=== PATIENT | male | born 1955 | race Caucasian/White ===

== ENCOUNTER 2017-06-09 15:31 | Inpatient (IN) | payer OTHER ==
[~2017-06-09] VITALS: Ht 175.3 cm; Wt 80.8 kg
[2017-06-09 16:16] VITALS: BP 153/88
[2017-06-09] MEDS ORDERED: morphine SULFATE 10 MG/ML, 1ML ONE (18:48)
[2017-06-09] MEDS ORDERED: PLEASE ENTER ALLERGIES MC SCH (19:00)
[2017-06-09] MEDS ORDERED: morphine SULFATE 10 MG/ML, 1ML IVPush ONE ×2 (19:00)
[2017-06-09 19:58] VITALS: BP 153/79
[2017-06-09] MEDS ORDERED: ACETAMINOPHEN 325 MG TABLET PO PRN (20:30)
[2017-06-09] MEDS ORDERED: PROMETHAZINE 25 MG/ML, 1ML IM PRN (20:30)
[2017-06-09] MEDS ORDERED: ONDANSETRON ODT 4 MG PO PRN (20:30)
[2017-06-09 21:57] LABS: BASOPHILS # (AUTO) 0.01 x10^3/uL (0-0.1); BASOPHILS % (AUTO) 0 % (0-1); EOSINOPHILS # (AUTO) 0.01 x10^3/uL (0-0.4); EOSINOPHILS % (AUTO) 0 % (1-7); LYMPHOCYTES # (AUTO) 0.88 x10^3/uL (1-3.4); LYMPHOCYTES % (AUTO) 16 % (22-44); MD NO; MEAN CORPUSCULAR HGB CONC 34.3 g/dL (33.2-36.2); MEAN CORPUSCULAR VOLUME 90.4 fL (81-97); MEAN PLATELET VOLUME 7.6 fL (7.4-10.4); MONOCYTES # (AUTO) 0.47 x10^3/uL (0.2-0.8); MONOCYTES % (AUTO) 8 % (2-9); NEUTROPHILS # (AUTO) 4.33 x10^3/uL (1.8-6.8); NEUTROPHILS % (AUTO) 76 % (42-75); PLATELET COUNT 252 x10^3/uL (130-400); RED BLOOD COUNT 5.26 x10^6/uL (4.38-5.82); RED CELL DISTRIBUTION WIDTH 12.5 % (9.4-14.8)
[2017-06-09 22:06] LABS: INTERNATIONAL NORMALIZED RATIO 1.05 (0.93-1.1); PROTHROMBIN TIME 10.8 Seconds (9.6-11.5)
[2017-06-09 22:08] LABS: ALANINE AMINOTRANSFERASE 13 U/L (12-78); ANION GAP 9 mmol/L (5-15); CALCIUM 7.6 mg/dL (8.5-10.1); CHLORIDE 102 mmol/L (98-107); CREATININE 0.67 mg/dL (0.7-1.3)
[2017-06-09 22:11] LABS: ALKALINE PHOSPHATASE 107 U/L (45-117); BILIRUBIN,TOTAL 0.5 mg/dL (0.2-1.0); TOTAL PROTEIN 6.4 g/dL (6.4-8.2)
[2017-06-09 22:23] LABS: HEMOGLOBIN A1C 10.6 % (4.2-6.3)
[2017-06-09] MEDS: SODIUM CHLORIDE 0.9% 1,000 ML IV SCH (23:19)
[2017-06-09] MEDS: morphine SULFATE 10 MG/ML, 1ML IVPush PRN (23:19)
[2017-06-10] MEDS ORDERED: hydrALAzine 20 MG/ML, 1ML IV PRN ×2 (01:30→13:30)
[2017-06-10] MEDS: ONDANSETRON 2MG/ML, 2ML IVPush PRN ×2 (01:55→16:19)
[2017-06-10] MEDS: PIPERACILLIN/TAZO/PMX 3.375GM 50 ML IV SCH ×4 (01:55→20:56)
[2017-06-10 02:19] VITALS: BP 146/78
[2017-06-10] MEDS: morphine SULFATE 10 MG/ML, 1ML IVPush PRN ×6 (02:33→22:23)
[2017-06-10 03:08] LABS: MICROSCOPIC NOT IND
[2017-06-10 03:11] LABS: CULTURE INDICATED? NO
[2017-06-10] MEDS ORDERED: INSULIN DETEMIR 100 UNITS/ML, PEN SQ-INSULIN SCH ×3 (04:00→21:00)
[2017-06-10 06:03] LABS: BASOPHILS % (AUTO) 0 % (0-1); EOSINOPHILS % (AUTO) 0 % (1-7); LYMPHOCYTES # (AUTO) 1.04 x10^3/uL (1-3.4); LYMPHOCYTES % (AUTO) 18 % (22-44); MD NO; MEAN CORPUSCULAR HGB CONC 34.3 g/dL (33.2-36.2); MEAN CORPUSCULAR VOLUME 90.4 fL (81-97); MEAN PLATELET VOLUME 7.9 fL (7.4-10.4); MONOCYTES # (AUTO) 0.58 x10^3/uL (0.2-0.8); MONOCYTES % (AUTO) 10 % (2-9); NEUTROPHILS # (AUTO) 4.08 x10^3/uL (1.8-6.8); NEUTROPHILS % (AUTO) 72 % (42-75); PLATELET COUNT 247 x10^3/uL (130-400); RED CELL DISTRIBUTION WIDTH 12.4 % (9.4-14.8)
[2017-06-10 06:17] LABS: CHLORIDE 102 mmol/L (98-107)
[2017-06-10 06:36] LABS: ALANINE AMINOTRANSFERASE 12 U/L (12-78); ALKALINE PHOSPHATASE 113 U/L (45-117); ANION GAP 11 mmol/L (5-15); BILIRUBIN,TOTAL 0.8 mg/dL (0.2-1.0); CALCIUM 7.8 mg/dL (8.5-10.1); CHOL/HDL RATIO 5.1; CHOLESTEROL, TOTAL 173 mg/dL (140-239); CREATININE 0.82 mg/dL (0.7-1.3); HDL CHOL % 20 % (26-37); HDL CHOLESTEROL (DIRECT) 34 mg/dL (40-60); LDL CHOLESTEROL,CALCULATED 116 mg/dL (54-169); LDL/HDL RATIO 3.4 (0.5-3.0); TOTAL PROTEIN 6.6 g/dL (6.4-8.2); TRIGLYCERIDES 113 mg/dL (50-200); VLDL CHOLESTEROL 23 mg/dL (0-25)
[2017-06-10 07:58] VITALS: BP 127/69
[2017-06-10] MEDS: SODIUM CHLORIDE 0.9% 1,000 ML IV SCH ×2 (08:04→16:19)
[2017-06-10] MEDS: INSULIN ASPART 100 UNITS/ML, PEN SQ-INSULIN SCH ×3 (08:05→22:17)
[2017-06-10 14:54] VITALS: BP 152/84
[2017-06-10 18:55] VITALS: BP 155/90
[2017-06-10] MEDS: SIMVASTATIN 20 MG TABLET PO SCH (20:57)
[2017-06-11] VITALS (7 sets, daily range): BP systolic 110–141; BP diastolic 54–89
[2017-06-11] MEDS: PIPERACILLIN/TAZO/PMX 3.375GM 50 ML IV SCH ×4 (02:31→19:52)
[2017-06-11] MEDS: SODIUM CHLORIDE 0.9% 1,000 ML IV SCH (02:35)
[2017-06-11] MEDS: INSULIN ASPART 100 UNITS/ML, PEN SQ-INSULIN SCH ×4 (04:10→20:26)
[2017-06-11] MEDS: morphine SULFATE 10 MG/ML, 1ML IVPush PRN ×2 (04:10→14:06)
[2017-06-11 04:59] LABS: CLOSTRIDIUM DIFFICILE ANTIGEN NEGATIVE; CLOSTRIDIUM DIFFICILE TOXIN NEGATIVE (Negative)
[2017-06-11 05:24] LABS: ALANINE AMINOTRANSFERASE 20 U/L (12-78); ALBUMIN 2.5 g/dL (3.4-5.0); ANION GAP 12 mmol/L (5-15); CALCIUM 7.4 mg/dL (8.5-10.1); CHLORIDE 109 mmol/L (98-107); CREATININE 0.79 mg/dL (0.7-1.3)
[2017-06-11 05:26] LABS: ALKALINE PHOSPHATASE 128 U/L (45-117); BILIRUBIN,TOTAL 0.7 mg/dL (0.2-1.0); TOTAL PROTEIN 5.8 g/dL (6.4-8.2)
[2017-06-11 05:27] LABS: BASOPHILS # (AUTO) 0.01 x10^3/uL (0-0.1); BASOPHILS % (AUTO) 0 % (0-1); EOSINOPHILS # (AUTO) 0.01 x10^3/uL (0-0.4); EOSINOPHILS % (AUTO) 0 % (1-7); LYMPHOCYTES # (AUTO) 0.63 x10^3/uL (1-3.4); LYMPHOCYTES % (AUTO) 17 % (22-44); MD NO; MEAN CORPUSCULAR HEMOGLOBIN 31.1 pg (27.5-34.5); MEAN CORPUSCULAR VOLUME 91.5 fL (81-97); MEAN PLATELET VOLUME 8.2 fL (7.4-10.4); MONOCYTES # (AUTO) 0.52 x10^3/uL (0.2-0.8); MONOCYTES % (AUTO) 14 % (2-9); NEUTROPHILS # (AUTO) 2.53 x10^3/uL (1.8-6.8); NEUTROPHILS % (AUTO) 68 % (42-75); PLATELET COUNT 236 x10^3/uL (130-400); RED BLOOD COUNT 4.89 x10^6/uL (4.38-5.82); RED CELL DISTRIBUTION WIDTH 12.7 % (9.4-14.8)
[2017-06-11] MEDS ORDERED: FENTANYL PF 250 MCG/5ML ONE ×2 (08:11→09:21)
[2017-06-11] MEDS ORDERED: MIDAZOLAM 1 MG/ML, 2ML ONE (08:11)
[2017-06-11] MEDS ORDERED: MEPERIDINE/PF 25MG/0.5ML IVPush PRN (08:30)
[2017-06-11] MEDS ORDERED: ACETAMINOPHEN 325 MG TABLET PO PRN (08:30)
[2017-06-11] MEDS ORDERED: morphine SULFATE 10 MG/ML, 1ML IV PRN (08:30)
[2017-06-11] MEDS ORDERED: hydrALAzine 20 MG/ML, 1ML IV PRN (08:30)
[2017-06-11] MEDS ORDERED: ONDANSETRON 2MG/ML, 2ML IVPush PRN (08:30)
[2017-06-11] MEDS ORDERED: FENTANYL PF 100 MCG/2ML IV PRN (08:30)
[2017-06-11] MEDS ORDERED: BUPIVACAINE/PF 0.5% ONE (08:38)
[2017-06-11] MEDS ORDERED: EPINEPHRINE 1 MG/ML, 1ML ONE (08:38)
[2017-06-11] MEDS: SODIUM CHLORIDE 0.45% 1,000 ML IV SCH ×2 (09:00→17:00)
[2017-06-11] MEDS ORDERED: morphine SULFATE 10 MG/ML, 1ML ONE (10:49)
[2017-06-11] MEDS ORDERED: POTASSIUM CHLORIDE 20 MEQ in D5%-0.45% NACL 1,000 ML IV SCH (12:30)
[2017-06-11] MEDS ORDERED: ONDANSETRON 2MG/ML, 2ML ONE (15:15)
[2017-06-11] MEDS ORDERED: SUCCINYLCHOLINE 20 MG/ML, 10ML ONE (15:15)
[2017-06-11] MEDS ORDERED: EPHEDRINE 50 MG/ML, 1ML ONE (15:15)
[2017-06-11] MEDS ORDERED: ROCURONIUM 10 MG/ML,10ML ONE (15:15)
[2017-06-11] MEDS ORDERED: PROPOFOL 10 MG/ML, 20ML ONE (15:15)
[2017-06-11] MEDS: HEPARIN 5,000 UNITS/ML, 1ML SQ SCH (19:52)
[2017-06-11] MEDS: SIMVASTATIN 20 MG TABLET PO SCH (19:54)
[2017-06-11] MEDS: INSULIN DETEMIR 100 UNITS/ML, PEN SQ-INSULIN SCH (20:25)
[2017-06-12] MEDS: morphine SULFATE 10 MG/ML, 1ML IVPush PRN ×4 (00:42→19:22)
[2017-06-12] MEDS: SODIUM CHLORIDE 0.45% 1,000 ML IV SCH ×3 (01:46→17:00)
[2017-06-12] MEDS: PIPERACILLIN/TAZO/PMX 3.375GM 50 ML IV SCH ×4 (02:42→21:21)
[2017-06-12] MEDS: HEPARIN 5,000 UNITS/ML, 1ML SQ SCH ×3 (04:53→21:21)
[2017-06-12 04:54] VITALS: BP 147/82
[2017-06-12 06:11] LABS: BASOPHILS # (AUTO) 0.02 x10^3/uL (0-0.1); BASOPHILS % (AUTO) 0 % (0-1); CHLORIDE 106 mmol/L (98-107); EOSINOPHILS # (AUTO) 0.01 x10^3/uL (0-0.4); EOSINOPHILS % (AUTO) 0 % (1-7); LYMPHOCYTES # (AUTO) 1.01 x10^3/uL (1-3.4); LYMPHOCYTES % (AUTO) 18 % (22-44); MD NO; MEAN CORPUSCULAR HEMOGLOBIN 30.5 pg (27.5-34.5); MEAN CORPUSCULAR HGB CONC 33.6 g/dL (33.2-36.2); MEAN CORPUSCULAR VOLUME 90.8 fL (81-97); MEAN PLATELET VOLUME 8.1 fL (7.4-10.4); MONOCYTES # (AUTO) 0.79 x10^3/uL (0.2-0.8); MONOCYTES % (AUTO) 14 % (2-9); NEUTROPHILS # (AUTO) 3.71 x10^3/uL (1.8-6.8); NEUTROPHILS % (AUTO) 67 % (42-75); PLATELET COUNT 226 x10^3/uL (130-400); RED BLOOD COUNT 4.54 x10^6/uL (4.38-5.82); RED CELL DISTRIBUTION WIDTH 12.4 % (9.4-14.8)
[2017-06-12 06:27] LABS: ALANINE AMINOTRANSFERASE 23 U/L (12-78); ALBUMIN 2.2 g/dL (3.4-5.0); ALKALINE PHOSPHATASE 88 U/L (45-117); ANION GAP 7 mmol/L (5-15); BILIRUBIN,TOTAL 0.7 mg/dL (0.2-1.0); CALCIUM 7.7 mg/dL (8.5-10.1); CREATININE 0.58 mg/dL (0.7-1.3); TOTAL PROTEIN 5.4 g/dL (6.4-8.2)
[2017-06-12] MEDS: INSULIN ASPART 100 UNITS/ML, PEN SQ-INSULIN SCH ×4 (06:33→21:00)
[2017-06-12 07:03] VITALS: BP 146/79
[2017-06-12 15:11] VITALS: BP 158/88
[2017-06-12] MEDS ORDERED: POTASSIUM CHLORIDE 40 MEQ in SODIUM CHLORIDE 0.9% 500 ML IV ONE (18:30)
[2017-06-12 20:20] VITALS: BP 136/80
[2017-06-12] MEDS: INSULIN DETEMIR 100 UNITS/ML, PEN SQ-INSULIN SCH ×2 (21:00→21:22)
[2017-06-12] MEDS: SIMVASTATIN 20 MG TABLET PO SCH (21:21)
[2017-06-13] MEDS: morphine SULFATE 10 MG/ML, 1ML IVPush PRN ×4 (01:38→20:25)
[2017-06-13] MEDS: PIPERACILLIN/TAZO/PMX 3.375GM 50 ML IV SCH ×4 (02:36→20:11)
[2017-06-13 02:43] VITALS: BP 133/75
[2017-06-13] MEDS: HEPARIN 5,000 UNITS/ML, 1ML SQ SCH ×3 (06:02→20:11)
[2017-06-13] MEDS: INSULIN ASPART 100 UNITS/ML, PEN SQ-INSULIN SCH ×4 (06:05→20:10)
[2017-06-13 06:51] LABS: ANION GAP 8 mmol/L (5-15); CALCIUM 7.2 mg/dL (8.5-10.1); CHLORIDE 103 mmol/L (98-107); CREATININE 0.66 mg/dL (0.7-1.3)
[2017-06-13 07:18] VITALS: BP 146/79
[2017-06-13] MEDS: SODIUM CHLORIDE 0.45% 1,000 ML IV SCH ×3 (07:51→23:40)
[2017-06-13 14:44] VITALS: BP 152/81
[2017-06-13] MEDS: INSULIN DETEMIR 100 UNITS/ML, PEN SQ-INSULIN SCH (20:11)
[2017-06-13] MEDS: SIMVASTATIN 20 MG TABLET PO SCH (20:11)
[2017-06-13 20:26] VITALS: BP_SYST 103; BP_SYST 151; BP_DIAS 68; BP_DIAS 81
[2017-06-14] MEDS: morphine SULFATE 10 MG/ML, 1ML IVPush PRN ×4 (01:44→20:09)
[2017-06-14] MEDS: PIPERACILLIN/TAZO/PMX 3.375GM 50 ML IV SCH ×4 (02:11→20:10)
[2017-06-14 03:59] VITALS: BP 146/76
[2017-06-14] MEDS: HEPARIN 5,000 UNITS/ML, 1ML SQ SCH ×3 (04:12→20:10)
[2017-06-14] MEDS: INSULIN ASPART 100 UNITS/ML, PEN SQ-INSULIN SCH ×4 (06:21→20:07)
[2017-06-14 06:50] VITALS: BP 144/79
[2017-06-14] MEDS: SODIUM CHLORIDE 0.45% 1,000 ML IV SCH ×2 (08:24→20:09)
[2017-06-14] MEDS ORDERED: GADOBUTROL 7.5 MMOL/7.5 ML PFS ONE (11:28)
[2017-06-14] MEDS: POTASSIUM CHLORIDE 20 MEQ TAB.ER.PRT PO SCH ×2 (11:48→14:54)
[2017-06-14 12:30] VITALS: BP 169/85
[2017-06-14] MEDS ORDERED: OMNIPAQUE 350 MG/ML, 100ML BOTTLE ONE (16:11)
[2017-06-14] MEDS: INSULIN DETEMIR 100 UNITS/ML, PEN SQ-INSULIN SCH (20:09)
[2017-06-14] MEDS: SIMVASTATIN 20 MG TABLET PO SCH (20:10)
[2017-06-14 21:15] VITALS: BP 134/71
[2017-06-15] MEDS: PIPERACILLIN/TAZO/PMX 3.375GM 50 ML IV SCH ×3 (02:09→14:53)
[2017-06-15 02:11] VITALS: BP 154/80
[2017-06-15] MEDS: HEPARIN 5,000 UNITS/ML, 1ML SQ SCH ×3 (04:21→22:18)
[2017-06-15] MEDS: SODIUM CHLORIDE 0.45% 1,000 ML IV SCH ×3 (04:21→21:14)
[2017-06-15 05:29] LABS: CHLORIDE 103 mmol/L (98-107)
[2017-06-15 05:36] LABS: ALANINE AMINOTRANSFERASE 11 U/L (12-78); ALBUMIN 2.1 g/dL (3.4-5.0); ALKALINE PHOSPHATASE 100 U/L (45-117); ANION GAP 8 mmol/L (5-15); BILIRUBIN,TOTAL 0.6 mg/dL (0.2-1.0); CALCIUM 7.5 mg/dL (8.5-10.1); CREATININE 0.54 mg/dL (0.7-1.3); TOTAL PROTEIN 5.5 g/dL (6.4-8.2)
[2017-06-15] MEDS: INSULIN ASPART 100 UNITS/ML, PEN SQ-INSULIN SCH ×4 (07:48→22:20)
[2017-06-15] MEDS: POTASSIUM CHLORIDE 20 MEQ TAB.ER.PRT PO SCH ×4 (10:27→15:00)
[2017-06-15 10:28] VITALS: BP 148/82
[2017-06-15] MEDS: morphine SULFATE 10 MG/ML, 1ML IVPush PRN (11:26)
[2017-06-15 12:51] VITALS: BP 152/82
[2017-06-15 20:00] VITALS: BP 161/92
[2017-06-15] MEDS ORDERED: PIPERACILLIN/TAZO 3.375 GM in SODIUM CHLORIDE 0.9% 50 ML IV SCH (20:30)
[2017-06-15] MEDS: HYDROcodone/APAP 5/325 TABLET PO PRN (21:15)
[2017-06-15] MEDS: DOCUSATE 100 MG CAPSULE PO SCH (22:18)
[2017-06-15] MEDS: SIMVASTATIN 20 MG TABLET PO SCH (22:19)
[2017-06-15] MEDS: INSULIN DETEMIR 100 UNITS/ML, PEN SQ-INSULIN SCH (22:19)
[2017-06-16 00:39] VITALS: BP 130/73
[2017-06-16] MEDS: PIPERACILLIN/TAZO/PMX 3.375GM 50 ML IV SCH ×4 (02:55→20:44)
[2017-06-16] MEDS: HEPARIN 5,000 UNITS/ML, 1ML SQ SCH ×3 (02:59→19:35)
[2017-06-16 05:48] LABS: ANION GAP 7 mmol/L (5-15); CALCIUM 7.9 mg/dL (8.5-10.1); CHLORIDE 103 mmol/L (98-107)
[2017-06-16] MEDS: SODIUM CHLORIDE 0.45% 1,000 ML IV SCH ×3 (06:17→22:59)
[2017-06-16] MEDS: INSULIN ASPART 100 UNITS/ML, PEN SQ-INSULIN SCH ×4 (07:00→20:48)
[2017-06-16 09:01] VITALS: BP 147/79
[2017-06-16] MEDS: DOCUSATE 100 MG CAPSULE PO SCH ×2 (09:04→19:35)
[2017-06-16] MEDS: HYDROcodone/APAP 5/325 TABLET PO PRN ×3 (13:43→23:16)
[2017-06-16 17:44] VITALS: BP_SYST 134; BP_SYST 163; BP_DIAS 67; BP_DIAS 83
[2017-06-16] MEDS: POTASSIUM CHLORIDE 10% 20 MEQ/15 ML UDC PO SCH ×2 (19:35→22:19)
[2017-06-16] MEDS: SIMVASTATIN 20 MG TABLET PO SCH (19:35)
[2017-06-16 20:28] VITALS: BP 149/78
[2017-06-16] MEDS: INSULIN DETEMIR 100 UNITS/ML, PEN SQ-INSULIN SCH (20:48)
[2017-06-17 01:48] VITALS: BP 133/79
[2017-06-17] MEDS: HEPARIN 5,000 UNITS/ML, 1ML SQ SCH ×3 (03:23→21:45)
[2017-06-17] MEDS: SODIUM CHLORIDE 0.45% 1,000 ML IV SCH ×2 (03:23→15:00)
[2017-06-17] MEDS: PIPERACILLIN/TAZO/PMX 3.375GM 50 ML IV SCH ×2 (03:23→08:39)
[2017-06-17 05:30] LABS: CHLORIDE 108 mmol/L (98-107)
[2017-06-17 05:38] LABS: ANION GAP 5 mmol/L (5-15); CALCIUM 7.7 mg/dL (8.5-10.1); CREATININE 0.76 mg/dL (0.7-1.3)
[2017-06-17] MEDS: HYDROcodone/APAP 5/325 TABLET PO PRN ×2 (07:00→18:42)
[2017-06-17] MEDS: INSULIN ASPART 100 UNITS/ML, PEN SQ-INSULIN SCH ×4 (07:00→20:32)
[2017-06-17 07:05] VITALS: BP 147/74
[2017-06-17] MEDS: DOCUSATE 100 MG CAPSULE PO SCH ×2 (09:00→21:00)
[2017-06-17] MEDS ORDERED: POTASSIUM CHLORIDE 80 MEQ in SODIUM CHLORIDE 0.9% 1,000 ML IV ONE (11:00)
[2017-06-17] MEDS ORDERED: HEPARIN 1,000 UNITS/ML, 10ML ONE (13:35)
[2017-06-17] MEDS ORDERED: BUPIVACAINE/PF 0.5% ONE (13:35)
[2017-06-17] MEDS ORDERED: PROTAMINE SULFATE 10 MG/ML, 5ML ONE (13:35)
[2017-06-17] MEDS ORDERED: MIDAZOLAM 1 MG/ML, 2ML ONE (14:02)
[2017-06-17] MEDS ORDERED: PROPOFOL 10 MG/ML, 20ML ONE (14:04)
[2017-06-17] MEDS ORDERED: FENTANYL PF 100 MCG/2ML ONE (14:12)
[2017-06-17] MEDS ORDERED: LIDOCAINE 1%, 50ML ONE (14:16)
[2017-06-17] MEDS ORDERED: EPINEPHRINE 1 MG/ML, 1ML ONE (14:16)
[2017-06-17] MEDS ORDERED: ONDANSETRON 2MG/ML, 2ML IVPush PRN (14:30)
[2017-06-17] MEDS ORDERED: OXYcodone 5 MG/5 ML ORAL.SOL UDC PO PRN (14:30)
[2017-06-17] MEDS ORDERED: ACETAMINOPHEN 325 MG TABLET PO PRN (14:30)
[2017-06-17] MEDS ORDERED: HYDROmorphone 1 MG/ML, 1ML IV PRN (14:30)
[2017-06-17] MEDS ORDERED: FENTANYL PF 100 MCG/2ML IV PRN (14:30)
[2017-06-17 16:30] VITALS: BP 166/92
[2017-06-17 17:05] VITALS: BP 170/93
[2017-06-17 17:58] LABS: CLOSTRIDIUM DIFFICILE ANTIGEN NEGATIVE; CLOSTRIDIUM DIFFICILE TOXIN NEGATIVE (Negative)
[2017-06-17 20:19] VITALS: BP 128/81
[2017-06-17] MEDS ORDERED: MAGNESIUM SULFATE PMX 4GM/100M 100 ML IV ONE (21:00)
[2017-06-17] MEDS: SIMVASTATIN 20 MG TABLET PO SCH (21:45)
[2017-06-17] MEDS: INSULIN DETEMIR 100 UNITS/ML, PEN SQ-INSULIN SCH (21:46)
[2017-06-18] MEDS: HYDROcodone/APAP 5/325 TABLET PO PRN ×2 (01:21→15:59)
[2017-06-18 01:50] VITALS: BP 153/83
[2017-06-18] MEDS: SODIUM CHLORIDE 0.45% 1,000 ML IV SCH ×3 (04:17→20:00)
[2017-06-18 05:24] LABS: ANION GAP 5 mmol/L (5-15); CHLORIDE 107 mmol/L (98-107)
[2017-06-18 05:27] LABS: CALCIUM 7.7 mg/dL (8.5-10.1)
[2017-06-18] MEDS: HEPARIN 5,000 UNITS/ML, 1ML SQ SCH ×3 (06:06→21:34)
[2017-06-18] MEDS: INSULIN ASPART 100 UNITS/ML, PEN SQ-INSULIN SCH ×4 (07:00→21:37)
[2017-06-18] MEDS ORDERED: POTASSIUM CHLORIDE 40 MEQ in SODIUM CHLORIDE 0.9% 500 ML IV ONE (07:30)
[2017-06-18 07:34] VITALS: BP 143/76
[2017-06-18] MEDS: DOCUSATE 100 MG CAPSULE PO SCH ×2 (08:36→21:33)
[2017-06-18 14:00] VITALS: BP 145/73
[2017-06-18] MEDS: POTASSIUM CHLORIDE 40 MEQ in SODIUM CHLORIDE 0.9% 500 ML IV SCH ×2 (16:48→23:56)
[2017-06-18 19:59] VITALS: BP 154/88
[2017-06-18] MEDS: SIMVASTATIN 20 MG TABLET PO SCH (21:33)
[2017-06-18] MEDS: INSULIN DETEMIR 100 UNITS/ML, PEN SQ-INSULIN SCH (22:00)
[2017-06-19] MEDS: HYDROcodone/APAP 5/325 TABLET PO PRN (01:16)
[2017-06-19 05:32] LABS: ANION GAP 3 mmol/L (5-15); CALCIUM 7.7 mg/dL (8.5-10.1); CHLORIDE 111 mmol/L (98-107)
[2017-06-19 05:33] LABS: CREATININE 0.55 mg/dL (0.7-1.3)
[2017-06-19] MEDS: HEPARIN 5,000 UNITS/ML, 1ML SQ SCH (05:59)
[2017-06-19] MEDS: SODIUM CHLORIDE 0.45% 1,000 ML IV SCH (06:12)
[2017-06-19] MEDS: INSULIN ASPART 100 UNITS/ML, PEN SQ-INSULIN SCH ×2 (07:00→11:00)
[2017-06-19 07:31] VITALS: BP 151/80
[2017-06-19] MEDS ORDERED: POTASSIUM CHLORIDE 40 MEQ in SODIUM CHLORIDE 0.9% 500 ML IV ONE (08:30)
[2017-06-19] MEDS: DOCUSATE 100 MG CAPSULE PO SCH (09:00)
[2017-06-19] MEDS ORDERED: ONDA4TAB13 PO (09:43)
[2017-06-19] MEDS ORDERED: KETO10TA PO (09:43)
[2017-06-19] MEDS ORDERED: INSU100I28 SQ-INSULIN (09:43)
[2017-06-19] MEDS ORDERED: SIMV20TA3 PO (09:43)
[2017-06-19] MEDS ORDERED: ACET325T14 PO (09:43)
== END 2017-06-19 12:16 | disposition home or self-care (01) | DRG 330 ==
LOC: 4NOR 15:31 → DCLOUNGE 06-19 11:50
PROVIDERS: ADMIT Family Medicine; ATTEND Family Medicine
PROC: 0DBU4ZZ Excision of Omentum, Percutaneous Endoscopic Approach (ICD-10-PCS; 2017-06-11)
PROC: 0D9W4ZX Drainage of Peritoneum, Percutaneous Endoscopic Approach, Diagnostic (ICD-10-PCS; 2017-06-11)
PROC: 0D1M4Z4 Bypass Descending Colon to Cutaneous, Percutaneous Endoscopic Approach (ICD-10-PCS; principal; 2017-06-11 08:30)
PROC: 0JH60WZ Insertion of Totally Implantable Vascular Access Device into Chest Subcutaneous Tissue and Fascia, Open Approach (ICD-10-PCS; 2017-06-17)
DX: C20 Malignant neoplasm of rectum (principal); K56.609 Unspecified intestinal obstruction, unspecified as to partial versus complete obstruction; D68.59 Other primary thrombophilia; C78.6 Secondary malignant neoplasm of retroperitoneum and peritoneum; C78.7 Secondary malignant neoplasm of liver and intrahepatic bile duct; R18.8 Other ascites; C18.6 Malignant neoplasm of descending colon; C19 Malignant neoplasm of rectosigmoid junction; N39.0 Urinary tract infection, site not specified; E11.65 Type 2 diabetes mellitus with hyperglycemia; I10 Essential (primary) hypertension; K63.9 Disease of intestine, unspecified; E78.5 Hyperlipidemia, unspecified; E87.5 Hyperkalemia; E87.6 Hypokalemia; Z82.3 Family history of stroke; Z82.49 Family history of ischemic heart disease and other diseases of the circulatory system; Z87.891 Personal history of nicotine dependence; Z92.21 Personal history of antineoplastic chemotherapy
CPT/HCPCS: 36415; 70553; 71045; 71260; 74177; 77001; 80048; 80053; 80061; 81003; 82105; 82378; 82962; 83036; 83735; 84100; 84132; 84443; 85014; 85018; 85025; 85610; 86301; 87324; 88112; 88305; 93005; A9585; J0171; J1644; J1815; J2250; J2405; J2543; J2704; J2720; J3010; J3480; J3490; Q9967; C1788; J0330; J0360; J2270; J3475; J7030; J7040

== ENCOUNTER → 2017-09-18 | Outpatient (CLI) | payer OTHER ==
[~2017-09-18] MED LIST: ACET325T14 PO; INSU100I28 SQ-INSULIN; KETO10TA PO; OMNIPAQUE 350 MG/ML, 100ML BOTTLE ONE; ONDA4TAB13 PO; SIMV20TA3 PO
== END | disposition home or self-care (01) ==
LOC: CFH 11:30
PROVIDERS: ATTEND Internal Medicine Hematology & Oncology
DX: C78.7 Secondary malignant neoplasm of liver and intrahepatic bile duct (principal); C18.6 Malignant neoplasm of descending colon
CPT/HCPCS: 71260; 74177; Q9967

== ENCOUNTER 2018-01-24 07:39 | Day surgery (SDC) | payer OTHER ==
[~2018-01-24 07:39] MED LIST changes: -OMNIPAQUE 350 MG/ML, 100ML BOTTLE ONE
[2018-01-24] MEDS ORDERED: LIDOCAINE-MPF 2%, 2ML ONE (08:23)
== END 2018-01-24 17:00 | disposition home or self-care (01) ==
LOC: RAD 07:39
PROVIDERS: ATTEND Internal Medicine Hematology & Oncology
DX: Z45.2 Encounter for adjustment and management of vascular access device (principal); C18.9 Malignant neoplasm of colon, unspecified; Z79.4 Long term (current) use of insulin; Z87.891 Personal history of nicotine dependence
CPT/HCPCS: 36590; 77001; J3490

== ENCOUNTER → 2018-03-07 | Outpatient (CLI) | payer OTHER ==
[~2018-03-07] MED LIST changes: +LIDOCAINE-MPF 2%, 2ML ONE
== END | disposition home or self-care (01) ==
LOC: RAD 14:58
PROVIDERS: ATTEND Internal Medicine Hematology & Oncology
DX: C18.6 Malignant neoplasm of descending colon (principal); R18.8 Other ascites
CPT/HCPCS: 49083; J3490

== ENCOUNTER 2018-03-29 18:49 | Inpatient (IN) | payer OTHER ==
[~2018-03-29] VITALS: Ht 175.3 cm; Wt 58.2 kg
[~2018-03-29 18:49] MED LIST changes: -LIDOCAINE-MPF 2%, 2ML ONE
[2018-03-29] MEDS ORDERED: SODIUM CHLORIDE FLUSH 10ML SYR IVF ONE (19:00)
[2018-03-29] MEDS ORDERED: PLEASE ENTER HEIGHT AND WEIGHT MC SCH (19:00)
[2018-03-29] MEDS ORDERED: SODIUM CHLORIDE 0.9% 1,000ML IVBOLUS ONE (19:00)
[2018-03-29 19:39] LABS: BASOPHILS # (AUTO) 0.01 x10^3/uL (0-0.1); BASOPHILS % (AUTO) 0 % (0-1); EOSINOPHILS % (AUTO) 0 % (1-7); LYMPHOCYTES # (AUTO) 0.42 x10^3/uL (1-3.4); LYMPHOCYTES % (AUTO) 3 % (22-44); MD NO; MEAN CORPUSCULAR HEMOGLOBIN 31.2 pg (27.5-34.5); MEAN CORPUSCULAR HGB CONC 34.2 g/dL (33.2-36.2); MEAN CORPUSCULAR VOLUME 91.2 fL (81-97); MEAN PLATELET VOLUME 7.9 fL (7.4-10.4); MONOCYTES # (AUTO) 1.43 x10^3/uL (0.2-0.8); MONOCYTES % (AUTO) 9 % (2-9); NEUTROPHILS # (AUTO) 14.15 x10^3/uL (1.8-6.8); NEUTROPHILS % (AUTO) 88 % (42-75); PLATELET COUNT 380 x10^3/uL (130-400); RED BLOOD COUNT 4.07 x10^6/uL (4.38-5.82); RED CELL DISTRIBUTION WIDTH 13.9 % (9.4-14.8)
[2018-03-29 19:52] LABS: ALANINE AMINOTRANSFERASE 32 U/L (12-78); ANION GAP 12 mmol/L (5-15); CALCIUM 7.3 mg/dL (8.5-10.1); CHLORIDE 103 mmol/L (98-107); CREATININE 4.12 mg/dL (0.7-1.3)
[2018-03-29 19:56] LABS: ALKALINE PHOSPHATASE 284 U/L (45-117); BILIRUBIN,TOTAL 0.4 mg/dL (0.2-1.0); TOTAL PROTEIN 5.7 g/dL (6.4-8.2)
[2018-03-29 20:00] LABS: TROPONIN I 0.122 ng/mL (0.000-0.045)
[2018-03-29] MEDS ORDERED: FUROSEMIDE 40 MG/4 ML IV ONE (20:00)
[2018-03-29] MEDS ORDERED: ASPIRIN 325 MG TABLET PO ONE (20:00)
[2018-03-29 20:02] LABS: INTERNATIONAL NORMALIZED RATIO 1.11 (0.93-1.1); PROTHROMBIN TIME 11.4 Seconds (9.6-11.5)
[2018-03-29] MEDS ORDERED: FUROSEMIDE 20 MG/2 ML ONE (20:06)
[2018-03-29] MEDS ORDERED: ASPIRIN 325 MG TABLET ONE (20:06)
[2018-03-29] MEDS ORDERED: REGULAR INSULIN 62.5 UNITS in SODIUM CHLORIDE 0.9% 249.375 ML IV PRN ×2 (20:07→20:56)
[2018-03-29 20:19] LABS: ACETONE, SERUM Large (80mg/dL) mg/dL (Negative)
[2018-03-29] MEDS ORDERED: OXYC30TA66 PO (20:32)
[2018-03-29] MEDS ORDERED: OXYM5TAB PO (20:32)
[2018-03-29 20:40] LABS: MICROSCOPIC INDICATED
[2018-03-29 20:52] LABS: CULTURE INDICATED? NO
[2018-03-29] MEDS ORDERED: D5%-0.45% NACL 1,000 ML IV PRN (20:56)
[2018-03-29] MEDS ORDERED: CEFTRIAXONE 2 GM in SODIUM CHLORIDE 0.9% 50 ML IV SCH (21:00)
[2018-03-29] MEDS ORDERED: SODIUM CHLORIDE 0.9% 1,000 ML IV SCH (21:02)
[2018-03-29] MEDS ORDERED: PROMETHAZINE 25 MG/ML, 1ML IM PRN (21:30)
[2018-03-29] MEDS ORDERED: GABAPENTIN 300 MG CAPSULE PO PRN (21:30)
[2018-03-29] MEDS ORDERED: POLYETHYLENE GLYCOL 17 GM PACKET PO PRN (21:30)
[2018-03-29] MEDS ORDERED: BISACODYL 10 MG SUPP PR PRN (21:30)
[2018-03-29] MEDS ORDERED: LABETALOL 5MG/ML, 20ML IVPush PRN (21:30)
[2018-03-29] MEDS ORDERED: hydrALAzine 20 MG/ML, 1ML IVPush PRN (21:30)
[2018-03-29 21:45] LABS: FREE T4 (FREE THYROXINE) 0.91 ng/dL (0.76-1.46); THYROID STIMULATING HORMONE 6.31 mIU/L (0.358-3.740)
[2018-03-29 21:48] LABS: HEMOGLOBIN A1C 9.7 % (4.2-6.3)
[2018-03-29] MEDS: LACTULOSE 10 GM/15 ML UDC PO SCH (21:58)
[2018-03-29] MEDS: HEPARIN 5,000 UNITS/ML, 1ML SQ SCH (21:58)
[2018-03-29 22:08] VITALS: BP 128/88
[2018-03-29 22:45] VITALS: BP 128/88
[2018-03-29] MEDS: ALBUMIN HUMAN 25% 100 ML IV SCH (23:26)
[2018-03-30 02:20] LABS: ANION GAP 12 mmol/L (5-15); CALCIUM 7.7 mg/dL (8.5-10.1); CHLORIDE 103 mmol/L (98-107); CREATININE 4.28 mg/dL (0.7-1.3)
[2018-03-30] MEDS: ONDANSETRON 2MG/ML, 2ML IVPush PRN (02:24)
[2018-03-30] MEDS: ALBUMIN HUMAN 25% 100 ML IV SCH ×4 (03:51→20:52)
[2018-03-30 04:04] VITALS: BP 108/71
[2018-03-30 05:01] LABS: ALBUMIN 2.6 g/dL (3.4-5.0); ANION GAP 13 mmol/L (5-15); BASOPHILS # (AUTO) 0.01 x10^3/uL (0-0.1); BASOPHILS % (AUTO) 0 % (0-1); CALCIUM 7.5 mg/dL (8.5-10.1); CHLORIDE 103 mmol/L (98-107); EOSINOPHILS # (AUTO) 0.01 x10^3/uL (0-0.4); EOSINOPHILS % (AUTO) 0 % (1-7); LYMPHOCYTES # (AUTO) 0.73 x10^3/uL (1-3.4); LYMPHOCYTES % (AUTO) 6 % (22-44); MD NO; MEAN CORPUSCULAR HEMOGLOBIN 30.5 pg (27.5-34.5); MEAN CORPUSCULAR HGB CONC 33.5 g/dL (33.2-36.2); MEAN PLATELET VOLUME 7.7 fL (7.4-10.4); MONOCYTES % (AUTO) 8 % (2-9); NEUTROPHILS # (AUTO) 11.35 x10^3/uL (1.8-6.8); NEUTROPHILS % (AUTO) 87 % (42-75); PLATELET COUNT 351 x10^3/uL (130-400); RED BLOOD COUNT 4.13 x10^6/uL (4.38-5.82)
[2018-03-30 05:06] LABS: ALANINE AMINOTRANSFERASE 29 U/L (12-78); ALKALINE PHOSPHATASE 289 U/L (45-117); BILIRUBIN,TOTAL 0.4 mg/dL (0.2-1.0); CHOLESTEROL, TOTAL 178 mg/dL (140-239); CREATININE 4.19 mg/dL (0.7-1.3); HDL CHOL % 25 % (26-37); HDL CHOLESTEROL (DIRECT) 45 mg/dL (40-60); LDL CHOLESTEROL,CALCULATED 99 mg/dL (54-169); LDL/HDL RATIO 2.2 (0.5-3.0); TOTAL PROTEIN 6.4 g/dL (6.4-8.2); TRIGLYCERIDES 170 mg/dL (50-200); VLDL CHOLESTEROL 34 mg/dL (0-25)
[2018-03-30] MEDS: HEPARIN 5,000 UNITS/ML, 1ML SQ SCH ×3 (05:55→20:52)
[2018-03-30] MEDS: INSULIN LISPRO 100 UNITS/ML, PEN SQ-INSULIN SCH ×4 (07:00→20:51)
[2018-03-30] MEDS: INSULIN GLARGINE 100 UNITS/ML, PEN SQ-INSULIN SCH ×2 (07:40→17:15)
[2018-03-30] MEDS ORDERED: LIDOCAINE 1%, 10ML ONE (08:08)
[2018-03-30] MEDS: LACTULOSE 10 GM/15 ML UDC PO SCH ×2 (10:27→20:52)
[2018-03-30] MEDS: SODIUM CHLORIDE 0.9% 1,000 ML IV SCH ×2 (11:43→18:15)
[2018-03-30 12:28] LABS: CALCIUM 7.6 mg/dL (8.5-10.1)
[2018-03-30 13:09] LABS: POTASSIUM,URINE RANDOM 53 mmol/L; TOTAL PROTEIN,URINE RANDOM 90 mg/dL (0-12)
[2018-03-30 13:37] LABS: % IRON SATURATION 22 % (20-55); IRON LEVEL 34 mcg/dL (65-175); TOTAL IRON BINDING CAPACITY 155 mcg/dL (250-450)
[2018-03-30 13:41] LABS: TROPONIN I 0.125 ng/mL (0.000-0.045)
[2018-03-30 13:42] LABS: CHLORIDE,URINE RANDOM < 10 mmol/L; SODIUM,URINE RANDOM < 5 mmol/L
[2018-03-30 14:19] LABS: OSMOLALITY,URINE 483 mOsm/kg (500-850)
[2018-03-30 15:11] LABS: MICROSCOPIC INDICATED
[2018-03-30] MEDS: HYDROcodone/APAP 5/325 TABLET PO PRN (18:15)
[2018-03-30] MEDS: CEFTRIAXONE PMX 2GM/50ML 50 ML IVPB SCH (20:52)
[2018-03-30] MEDS ORDERED: D5%-0.45% NACL 1,000 ML IV PRN (20:56)
[2018-03-31] MEDS: HYDROcodone/APAP 5/325 TABLET PO PRN ×2 (00:39→21:21)
[2018-03-31] MEDS: ALBUMIN HUMAN 25% 100 ML IV SCH ×3 (03:15→15:00)
[2018-03-31] MEDS: SODIUM CHLORIDE 0.9% 1,000 ML IV SCH ×3 (03:15→21:00)
[2018-03-31 04:00] VITALS: BP 106/59
[2018-03-31 04:42] LABS: BASOPHILS % (AUTO) 0 % (0-1); EOSINOPHILS # (AUTO) 0.06 x10^3/uL (0-0.4); EOSINOPHILS % (AUTO) 1 % (1-7); LYMPHOCYTES # (AUTO) 0.45 x10^3/uL (1-3.4); LYMPHOCYTES % (AUTO) 6 % (22-44); MD NO; MEAN CORPUSCULAR HEMOGLOBIN 30.4 pg (27.5-34.5); MEAN CORPUSCULAR HGB CONC 33.4 g/dL (33.2-36.2); MEAN CORPUSCULAR VOLUME 91.2 fL (81-97); MEAN PLATELET VOLUME 7.1 fL (7.4-10.4); MONOCYTES # (AUTO) 0.52 x10^3/uL (0.2-0.8); MONOCYTES % (AUTO) 7 % (2-9); NEUTROPHILS # (AUTO) 6.06 x10^3/uL (1.8-6.8); NEUTROPHILS % (AUTO) 86 % (42-75); PLATELET COUNT 252 x10^3/uL (130-400); RED BLOOD COUNT 3.85 x10^6/uL (4.38-5.82); RED CELL DISTRIBUTION WIDTH 14.3 % (9.4-14.8)
[2018-03-31 04:48] LABS: ALANINE AMINOTRANSFERASE 67 U/L (12-78); ALBUMIN 3.3 g/dL (3.4-5.0); ANION GAP 10 mmol/L (5-15); CALCIUM 6.6 mg/dL (8.5-10.1); CHLORIDE 109 mmol/L (98-107)
[2018-03-31 05:05] LABS: ALKALINE PHOSPHATASE 987 U/L (45-117); CREATININE 2.76 mg/dL (0.7-1.3); TOTAL PROTEIN 6.1 g/dL (6.4-8.2)
[2018-03-31] MEDS: HEPARIN 5,000 UNITS/ML, 1ML SQ SCH ×3 (05:30→20:59)
[2018-03-31] MEDS: INSULIN GLARGINE 100 UNITS/ML, PEN SQ-INSULIN SCH ×2 (06:30→20:30)
[2018-03-31] MEDS: INSULIN LISPRO 100 UNITS/ML, PEN SQ-INSULIN SCH ×4 (07:00→20:59)
[2018-03-31] MEDS: LACTULOSE 10 GM/15 ML UDC PO SCH ×2 (08:27→20:58)
[2018-03-31] MEDS: ONDANSETRON 2MG/ML, 2ML IVPush PRN ×2 (09:09→21:08)
[2018-03-31] MEDS: ERGOCALCIFEROL 50,000 UNIT CAPSULE PO SCH (09:42)
[2018-03-31 10:03] LABS: POTASSIUM,URINE RANDOM 35 mmol/L
[2018-03-31 10:09] LABS: CHLORIDE,URINE RANDOM < 10 mmol/L; SODIUM,URINE RANDOM < 5 mmol/L
[2018-03-31 10:18] VITALS: BP 113/62
[2018-03-31 10:25] LABS: MICROSCOPIC INDICATED
[2018-03-31 12:22] VITALS: BP 127/56
[2018-03-31] MEDS: CEFTRIAXONE PMX 2GM/50ML 50 ML IVPB SCH (21:00)
[2018-03-31 21:27] VITALS: BP 98/61
[2018-04-01 01:55] VITALS: BP 99/58
[2018-04-01] MEDS: SODIUM CHLORIDE 0.9% 1,000 ML IV SCH ×2 (03:04→10:18)
[2018-04-01 04:00] VITALS: BP 104/63
[2018-04-01] MEDS: HYDROcodone/APAP 5/325 TABLET PO PRN ×3 (04:23→20:14)
[2018-04-01] MEDS: HEPARIN 5,000 UNITS/ML, 1ML SQ SCH ×3 (04:23→20:14)
[2018-04-01 04:56] LABS: ALANINE AMINOTRANSFERASE 44 U/L (12-78); ALBUMIN 2.5 g/dL (3.4-5.0); ANION GAP 12 mmol/L (5-15); CALCIUM 6.9 mg/dL (8.5-10.1); CHLORIDE 112 mmol/L (98-107)
[2018-04-01 04:59] LABS: ALKALINE PHOSPHATASE 941 U/L (45-117); BILIRUBIN,TOTAL 0.6 mg/dL (0.2-1.0); TOTAL PROTEIN 5.5 g/dL (6.4-8.2)
[2018-04-01 05:05] LABS: BASOPHILS % (AUTO) 0 % (0-1); EOSINOPHILS # (AUTO) 0.05 x10^3/uL (0-0.4); EOSINOPHILS % (AUTO) 1 % (1-7); LYMPHOCYTES # (AUTO) 0.35 x10^3/uL (1-3.4); LYMPHOCYTES % (AUTO) 4 % (22-44); MD NO; MEAN CORPUSCULAR HGB CONC 33.8 g/dL (33.2-36.2); MEAN CORPUSCULAR VOLUME 91.7 fL (81-97); MEAN PLATELET VOLUME 7.7 fL (7.4-10.4); MONOCYTES # (AUTO) 0.74 x10^3/uL (0.2-0.8); MONOCYTES % (AUTO) 9 % (2-9); NEUTROPHILS # (AUTO) 6.96 x10^3/uL (1.8-6.8); NEUTROPHILS % (AUTO) 86 % (42-75); PLATELET COUNT 247 x10^3/uL (130-400); RED BLOOD COUNT 4.11 x10^6/uL (4.38-5.82); RED CELL DISTRIBUTION WIDTH 14.4 % (9.4-14.8)
[2018-04-01 07:07] VITALS: BP 112/60
[2018-04-01] MEDS: LACTULOSE 10 GM/15 ML UDC PO SCH ×2 (07:49→20:13)
[2018-04-01] MEDS: CALCIUM CARBONATE 500 MG TAB.CHEW PO PRN (07:49)
[2018-04-01] MEDS: INSULIN GLARGINE 100 UNITS/ML, PEN SQ-INSULIN SCH ×2 (07:51→20:19)
[2018-04-01] MEDS: INSULIN LISPRO 100 UNITS/ML, PEN SQ-INSULIN SCH ×4 (07:51→20:18)
[2018-04-01 12:38] VITALS: BP 118/74
[2018-04-01] MEDS ORDERED: MORPHINE SULFATE 4 MG/ML, 1ML ONE (15:18)
[2018-04-01] MEDS: MORPHINE SULFATE 4 MG/ML, 1ML IVPush PRN ×2 (15:23→21:52)
[2018-04-01 19:31] VITALS: BP 130/91
[2018-04-01] MEDS: ONDANSETRON 2MG/ML, 2ML IVPush PRN (20:14)
[2018-04-01] MEDS: CEFTRIAXONE PMX 2GM/50ML 50 ML IVPB SCH (20:16)
[2018-04-02 03:10] VITALS: BP 144/86
[2018-04-02] MEDS: HYDROcodone/APAP 5/325 TABLET PO PRN (04:54)
[2018-04-02] MEDS: HEPARIN 5,000 UNITS/ML, 1ML SQ SCH ×3 (04:55→19:59)
[2018-04-02] MEDS: ONDANSETRON 2MG/ML, 2ML IVPush PRN ×2 (06:00→19:58)
[2018-04-02 06:28] LABS: BASOPHILS # (AUTO) 0.01 x10^3/uL (0-0.1); BASOPHILS % (AUTO) 0 % (0-1); EOSINOPHILS # (AUTO) 0.12 x10^3/uL (0-0.4); EOSINOPHILS % (AUTO) 1 % (1-7); LYMPHOCYTES # (AUTO) 0.63 x10^3/uL (1-3.4); LYMPHOCYTES % (AUTO) 6 % (22-44); MD NO; MEAN CORPUSCULAR HEMOGLOBIN 30.4 pg (27.5-34.5); MEAN CORPUSCULAR VOLUME 92.1 fL (81-97); MEAN PLATELET VOLUME 8.1 fL (7.4-10.4); MONOCYTES # (AUTO) 1.05 x10^3/uL (0.2-0.8); MONOCYTES % (AUTO) 10 % (2-9); NEUTROPHILS % (AUTO) 82 % (42-75); PLATELET COUNT 288 x10^3/uL (130-400); RED BLOOD COUNT 4.56 x10^6/uL (4.38-5.82); RED CELL DISTRIBUTION WIDTH 14.4 % (9.4-14.8)
[2018-04-02 06:35] LABS: ALBUMIN 2.2 g/dL (3.4-5.0); ANION GAP 9 mmol/L (5-15); CALCIUM 7.4 mg/dL (8.5-10.1); CHLORIDE 112 mmol/L (98-107)
[2018-04-02 06:51] LABS: ALANINE AMINOTRANSFERASE 37 U/L (12-78); ALKALINE PHOSPHATASE 1042 U/L (45-117); BILIRUBIN,TOTAL 0.5 mg/dL (0.2-1.0); CREATINE KINASE, TOTAL 120 U/L (39-308); CREATININE 1.09 mg/dL (0.7-1.3); TOTAL PROTEIN 5.6 g/dL (6.4-8.2)
[2018-04-02] MEDS: INSULIN GLARGINE 100 UNITS/ML, PEN SQ-INSULIN SCH ×2 (07:57→19:59)
[2018-04-02] MEDS: LACTULOSE 10 GM/15 ML UDC PO SCH ×2 (07:57→19:58)
[2018-04-02] MEDS: INSULIN LISPRO 100 UNITS/ML, PEN SQ-INSULIN SCH ×4 (07:57→20:00)
[2018-04-02] MEDS: SODIUM CHLORIDE 0.9% 1,000 ML IV SCH (08:51)
[2018-04-02] MEDS: MORPHINE SULFATE 4 MG/ML, 1ML IVPush PRN ×3 (09:09→19:49)
[2018-04-02 10:19] VITALS: BP 107/70
[2018-04-02] MEDS: FUROSEMIDE 20 MG TABLET PO SCH (13:35)
[2018-04-02] MEDS: SPIRONOLACTONE 25 MG TABLET PO SCH (13:35)
[2018-04-02 14:57] VITALS: BP 120/84
[2018-04-02 18:50] VITALS: BP 122/88
[2018-04-02] MEDS: CEFTRIAXONE PMX 2GM/50ML 50 ML IVPB SCH (19:58)
[2018-04-03 01:10] VITALS: BP 129/88
[2018-04-03] MEDS: ONDANSETRON 2MG/ML, 2ML IVPush PRN ×2 (01:57→07:41)
[2018-04-03] MEDS: HYDROcodone/APAP 5/325 TABLET PO PRN (01:57)
[2018-04-03 04:00] VITALS: BP 131/75
[2018-04-03] MEDS: MORPHINE SULFATE 4 MG/ML, 1ML IVPush PRN ×3 (04:49→20:39)
[2018-04-03] MEDS: HEPARIN 5,000 UNITS/ML, 1ML SQ SCH ×3 (04:49→22:11)
[2018-04-03 05:37] LABS: BASOPHILS % (AUTO) 0 % (0-1); EOSINOPHILS % (AUTO) 1 % (1-7); LYMPHOCYTES # (AUTO) 0.77 x10^3/uL (1-3.4); LYMPHOCYTES % (AUTO) 8 % (22-44); MD NO; MEAN CORPUSCULAR HEMOGLOBIN 31.5 pg (27.5-34.5); MEAN CORPUSCULAR HGB CONC 34.2 g/dL (33.2-36.2); MEAN CORPUSCULAR VOLUME 91.9 fL (81-97); MEAN PLATELET VOLUME 7.6 fL (7.4-10.4); MONOCYTES # (AUTO) 1.09 x10^3/uL (0.2-0.8); MONOCYTES % (AUTO) 11 % (2-9); NEUTROPHILS # (AUTO) 7.62 x10^3/uL (1.8-6.8); NEUTROPHILS % (AUTO) 80 % (42-75); PLATELET COUNT 298 x10^3/uL (130-400); RED BLOOD COUNT 4.48 x10^6/uL (4.38-5.82); RED CELL DISTRIBUTION WIDTH 14.5 % (9.4-14.8)
[2018-04-03 05:39] LABS: ALANINE AMINOTRANSFERASE 26 U/L (12-78); ANION GAP 10 mmol/L (5-15); CALCIUM 7.5 mg/dL (8.5-10.1); CHLORIDE 112 mmol/L (98-107); CREATININE 1.12 mg/dL (0.7-1.3)
[2018-04-03 05:52] LABS: ALKALINE PHOSPHATASE 1058 U/L (45-117); BILIRUBIN,TOTAL 0.4 mg/dL (0.2-1.0); TOTAL PROTEIN 5.5 g/dL (6.4-8.2)
[2018-04-03] MEDS: INSULIN LISPRO 100 UNITS/ML, PEN SQ-INSULIN SCH ×4 (07:51→21:02)
[2018-04-03] MEDS: INSULIN GLARGINE 100 UNITS/ML, PEN SQ-INSULIN SCH ×2 (07:51→21:01)
[2018-04-03 09:11] VITALS: BP 146/99
[2018-04-03] MEDS: FUROSEMIDE 20 MG TABLET PO SCH (09:58)
[2018-04-03] MEDS: SPIRONOLACTONE 25 MG TABLET PO SCH (10:01)
[2018-04-03] MEDS: LACTULOSE 10 GM/15 ML UDC PO SCH ×2 (10:02→22:11)
[2018-04-03] MEDS: CALCIUM CARBONATE 500 MG TAB.CHEW PO PRN (10:04)
[2018-04-03] MEDS: ONDANSETRON ODT 4 MG PO PRN ×2 (11:50→20:40)
[2018-04-03] MEDS ORDERED: POTASSIUM PHOS 4.4 MEQ/ML IV ONE (13:00)
[2018-04-03] MEDS ORDERED: POTASSIUM PHOSPHATE 22 MEQ in SODIUM CHLORIDE 0.9% 500 ML IV ONE (13:00)
[2018-04-03 18:53] VITALS: BP 124/75
[2018-04-03] MEDS: CEFTRIAXONE PMX 2GM/50ML 50 ML IVPB SCH (23:59)
[2018-04-04] MEDS: ONDANSETRON 2MG/ML, 2ML IVPush PRN ×3 (00:07→19:31)
[2018-04-04] MEDS: MORPHINE SULFATE 4 MG/ML, 1ML IVPush PRN ×3 (00:07→19:31)
[2018-04-04 02:15] VITALS: BP 111/74
[2018-04-04 04:27] LABS: BASOPHILS % (AUTO) 0 % (0-1); EOSINOPHILS # (AUTO) 0.09 x10^3/uL (0-0.4); EOSINOPHILS % (AUTO) 1 % (1-7); LYMPHOCYTES # (AUTO) 0.82 x10^3/uL (1-3.4); LYMPHOCYTES % (AUTO) 9 % (22-44); MD NO; MEAN CORPUSCULAR HEMOGLOBIN 30.1 pg (27.5-34.5); MEAN CORPUSCULAR VOLUME 91.2 fL (81-97); MEAN PLATELET VOLUME 7.2 fL (7.4-10.4); MONOCYTES # (AUTO) 1.03 x10^3/uL (0.2-0.8); MONOCYTES % (AUTO) 11 % (2-9); NEUTROPHILS # (AUTO) 7.72 x10^3/uL (1.8-6.8); NEUTROPHILS % (AUTO) 80 % (42-75); PLATELET COUNT 325 x10^3/uL (130-400); RED BLOOD COUNT 4.63 x10^6/uL (4.38-5.82); RED CELL DISTRIBUTION WIDTH 14.5 % (9.4-14.8)
[2018-04-04 04:35] LABS: ALBUMIN 1.8 g/dL (3.4-5.0); ANION GAP 10 mmol/L (5-15); CALCIUM 6.9 mg/dL (8.5-10.1); CHLORIDE 111 mmol/L (98-107)
[2018-04-04 04:38] LABS: ALANINE AMINOTRANSFERASE 20 U/L (12-78); ALKALINE PHOSPHATASE 957 U/L (45-117); BILIRUBIN,TOTAL 0.3 mg/dL (0.2-1.0); CREATININE 1.13 mg/dL (0.7-1.3); TOTAL PROTEIN 5.1 g/dL (6.4-8.2)
[2018-04-04] MEDS: HEPARIN 5,000 UNITS/ML, 1ML SQ SCH ×3 (06:03→21:17)
[2018-04-04] MEDS: INSULIN LISPRO 100 UNITS/ML, PEN SQ-INSULIN SCH ×4 (07:00→21:24)
[2018-04-04] MEDS: LACTULOSE 10 GM/15 ML UDC PO SCH ×2 (07:39→21:00)
[2018-04-04] MEDS: SPIRONOLACTONE 50 MG TABLET PO SCH (07:40)
[2018-04-04] MEDS: FUROSEMIDE 40 MG TABLET PO SCH (07:40)
[2018-04-04] MEDS: INSULIN GLARGINE 100 UNITS/ML, PEN SQ-INSULIN SCH ×2 (07:45→21:24)
[2018-04-04 09:51] VITALS: BP 116/77
[2018-04-04] MEDS ORDERED: MIDAZOLAM 1 MG/ML, 5ML ONE (11:00)
[2018-04-04] MEDS ORDERED: FLUMAZENIL 0.1 MG/1 ML, 5ML ONE (11:00)
[2018-04-04] MEDS ORDERED: NALOXONE 1 MG/ML, 2ML ONE (11:00)
[2018-04-04] MEDS ORDERED: FENTANYL PF 100 MCG/2ML ONE (11:00)
[2018-04-04 12:55] VITALS: BP 118/83
[2018-04-04 20:36] VITALS: BP 110/75
[2018-04-04] MEDS: CEFTRIAXONE PMX 2GM/50ML 50 ML IVPB SCH (23:53)
[2018-04-05 00:40] VITALS: BP 117/79
[2018-04-05] MEDS: HEPARIN 5,000 UNITS/ML, 1ML SQ SCH ×3 (05:31→22:58)
[2018-04-05] MEDS: MORPHINE SULFATE 4 MG/ML, 1ML IVPush PRN ×5 (05:47→22:57)
[2018-04-05] MEDS: ONDANSETRON 2MG/ML, 2ML IVPush PRN ×4 (05:47→22:57)
[2018-04-05 10:00] VITALS: BP 113/59
[2018-04-05] MEDS: FUROSEMIDE 40 MG TABLET PO SCH (10:08)
[2018-04-05] MEDS: LACTULOSE 10 GM/15 ML UDC PO SCH ×2 (10:08→21:00)
[2018-04-05] MEDS: SPIRONOLACTONE 50 MG TABLET PO SCH (10:08)
[2018-04-05] MEDS: INSULIN LISPRO 100 UNITS/ML, PEN SQ-INSULIN SCH ×4 (10:09→21:00)
[2018-04-05] MEDS: INSULIN GLARGINE 100 UNITS/ML, PEN SQ-INSULIN SCH ×2 (10:10→23:10)
[2018-04-05 14:29] VITALS: BP 111/75
[2018-04-05 20:00] VITALS: BP 125/80
[2018-04-05] MEDS: CEFTRIAXONE PMX 2GM/50ML 50 ML IVPB SCH (23:53)
[2018-04-06 01:22] VITALS: BP 125/83
[2018-04-06] MEDS: ONDANSETRON 2MG/ML, 2ML IVPush PRN ×4 (03:22→21:32)
[2018-04-06] MEDS: MORPHINE SULFATE 4 MG/ML, 1ML IVPush PRN ×4 (03:22→19:58)
[2018-04-06] MEDS: HEPARIN 5,000 UNITS/ML, 1ML SQ SCH ×3 (06:48→21:37)
[2018-04-06 07:08] VITALS: BP 125/83
[2018-04-06] MEDS: INSULIN LISPRO 100 UNITS/ML, PEN SQ-INSULIN SCH ×4 (07:39→21:00)
[2018-04-06] MEDS: SPIRONOLACTONE 50 MG TABLET PO SCH (08:14)
[2018-04-06] MEDS: FUROSEMIDE 40 MG TABLET PO SCH (08:14)
[2018-04-06] MEDS: INSULIN GLARGINE 100 UNITS/ML, PEN SQ-INSULIN SCH ×2 (08:15→21:36)
[2018-04-06] MEDS: LACTULOSE 10 GM/15 ML UDC PO SCH ×2 (09:00→21:00)
[2018-04-06 12:26] VITALS: BP 123/83
[2018-04-06 18:49] VITALS: BP 106/73
[2018-04-07] MEDS: CEFTRIAXONE PMX 2GM/50ML 50 ML IVPB SCH (00:07)
[2018-04-07] MEDS: MORPHINE SULFATE 4 MG/ML, 1ML IVPush PRN ×3 (00:09→14:57)
[2018-04-07 01:41] VITALS: BP 126/82
[2018-04-07] MEDS: HEPARIN 5,000 UNITS/ML, 1ML SQ SCH ×2 (05:20→13:56)
[2018-04-07] MEDS: ONDANSETRON 2MG/ML, 2ML IVPush PRN ×2 (05:20→14:57)
[2018-04-07 05:58] LABS: ANION GAP 10 mmol/L (5-15); CALCIUM 7.9 mg/dL (8.5-10.1); CHLORIDE 109 mmol/L (98-107); CREATININE 1.43 mg/dL (0.7-1.3)
[2018-04-07 06:40] VITALS: BP 114/79
[2018-04-07] MEDS: INSULIN LISPRO 100 UNITS/ML, PEN SQ-INSULIN SCH ×2 (07:00→11:00)
[2018-04-07] MEDS: ERGOCALCIFEROL 50,000 UNIT CAPSULE PO SCH (08:13)
[2018-04-07] MEDS: LACTULOSE 10 GM/15 ML UDC PO SCH (08:13)
[2018-04-07] MEDS: INSULIN GLARGINE 100 UNITS/ML, PEN SQ-INSULIN SCH (08:13)
[2018-04-07] MEDS ORDERED: SPIRONOLACTONE 25 MG TABLET PO SCH (09:00)
[2018-04-07] MEDS ORDERED: FUROSEMIDE 20 MG TABLET PO SCH (09:00)
[2018-04-07] MEDS ORDERED: LACT10SO5 PO (11:53)
[2018-04-07] MEDS ORDERED: FURO20TA3 PO (11:53)
[2018-04-07] MEDS ORDERED: INSU100I28 SQ (11:53)
[2018-04-07] MEDS ORDERED: ERGO500017 PO (11:53)
[2018-04-07] MEDS ORDERED: SPIR25TA PO (11:53)
[2018-04-07 12:25] VITALS: BP 109/75
== END 2018-04-07 16:06 | disposition home or self-care (01) | DRG 673 ==
LOC: ED 20:21 → EDIP 20:40 → CCU 21:30 → 3NW 03-31 10:03 → DCLOUNGE 04-07 15:50
PROVIDERS: ADMIT Internal Medicine; ATTEND Family Medicine
PROC: 0T9B70Z Drainage of Bladder with Drainage Device, Via Natural or Artificial Opening (ICD-10-PCS; principal; 2018-03-30)
PROC: 0W9G3ZZ Drainage of Peritoneal Cavity, Percutaneous Approach (ICD-10-PCS; 2018-03-30)
PROC: 0W9G3ZZ Drainage of Peritoneal Cavity, Percutaneous Approach (ICD-10-PCS; 2018-04-03)
PROC: 0JH83XZ Insertion of Tunneled Vascular Access Device into Abdomen Subcutaneous Tissue and Fascia, Percutaneous Approach (ICD-10-PCS; 2018-04-04)
DX: N17.0 Acute kidney failure with tubular necrosis (principal); E11.10 Type 2 diabetes mellitus with ketoacidosis without coma; K76.7 Hepatorenal syndrome; E43 Unspecified severe protein-calorie malnutrition; G93.41 Metabolic encephalopathy; R65.11 Systemic inflammatory response syndrome (SIRS) of non-infectious origin with acute organ dysfunction; C78.7 Secondary malignant neoplasm of liver and intrahepatic bile duct; Z68.1 Body mass index [BMI] 19.9 or less, adult; I50.20 Unspecified systolic (congestive) heart failure; R18.0 Malignant ascites; C78.6 Secondary malignant neoplasm of retroperitoneum and peritoneum; K76.6 Portal hypertension; D63.0 Anemia in neoplastic disease; E78.5 Hyperlipidemia, unspecified; E83.51 Hypocalcemia; E86.0 Dehydration; E87.5 Hyperkalemia; F32.9 Major depressive disorder, single episode, unspecified; I11.0 Hypertensive heart disease with heart failure; I95.9 Hypotension, unspecified; R62.7 Adult failure to thrive; Z51.5 Encounter for palliative care; Z87.891 Personal history of nicotine dependence; Z93.3 Colostomy status; Z85.048 Personal history of other malignant neoplasm of rectum, rectosigmoid junction, and anus
CPT/HCPCS: 36415; 49083; 49418; 51702; 70450; 71250; 74021; 74176; 80048; 80053; 80061; 81001; 82010; 82042; 82140; 82306; 82310; 82330; 82436; 82550; 82570; 82728; 82945; 82962; 83036; 83540; 83550; 83605; 83615; 83690; 83735; 83880; 83935; 83970; 84100; 84133; 84145; 84156; 84157; 84300; 84439; 84443; 84484; 84550; 85025; 85610; 85730; 87040; 87070; 87081; 87205; 88112; 88305; 93005; 93306; 96361; 96374; 96375; 99156; 99157; 99291; G0378; J0696; J1644; J1815; J1940; J2250; J2405; J2550; J3010; J3490; P9047; Q0162; C1729; J2310; J7030; J7040; J7050